=== PATIENT | female | born 1955 | race American Indian/Alaskan Native ===

== ENCOUNTER 2020-12-01 07:07 | Outpatient (CLI) | payer MEDICAID, MEDICARE ==
--- NOTE | 2020-12-01 08:39 | Fluoroscopy Report ---
ESOPHAGRAM INDICATION / CLINICAL INFORMATION: Dysphagia, pharyngoesophageal phase. TECHNIQUE: Esophagram was performed with double contrast barium and air. COMPARISON: None available. FINDINGS: MOTILITY: No significant abnormality. MUCOSA: No significant abnormality. MASS: None. STRICTURE: None. HIATAL HERNIA: None. REFLUX: None. BARIUM TABLET: Tablet passed into the stomach without delay. ADDITIONAL FINDINGS: None. Fluoroscopy time: 1.5 minutes. Fluoroscopy images: 8. IMPRESSION: Unremarkable esophagram. Signer Name: Tru Duong MD Signed: 12/01/2020 8:35 AM Workstation Name: [id number]
== END 2020-12-01 07:08 | disposition home or self-care (01) ==
LOC: FLUORO 07:07
PROVIDERS: ATTEND Otolaryngology
DX: R13.10 Dysphagia, unspecified (principal)
CPT/HCPCS: 74220